=== PATIENT | female | born 1965 | race Caucasian/White ===

== ENCOUNTER → 2017-07-08 | Outpatient (CLI) | payer OTHER ==
[~2017-07-08] MED LIST: IOHEXOL 300 MG/ML 75 ML VIAL. IV ONE
--- NOTE | 2017-07-08 08:39 | RAD ---
EXAM: CT head with contrast. HISTORY: Olfactory hallucinations. TECHNIQUE: CT of the head was performed after the intravenous administration of 68 mL iodinated contrast.. COMPARISON: None. FINDINGS: There are no clear enhancing lesions. The intracranial vasculature are grossly unremarkable by this technique. No abnormality is appreciated along the course of the olfactory bulbs and cribriform plate. There is no mass effect or vasogenic edema. There is no intracranial hemorrhage. Lozada-white differentiation is preserved. The ventricles are normal in size and position. The sella is incidentally mostly empty. The paranasal sinuses, orbits, temporal bones and calvarium are unremarkable and there included portions. IMPRESSION: 1. No abnormality is identified by CT. MRI is more sensitive for enhancing or small lesions if there is persistent concern. One or more of the following individualized dose reduction techniques were utilized for this examination: 1. Automated exposure control. 2. Adjustment of the mA and/or kV according to patient size. 3. Use of iterative reconstruction technique.
== END | disposition home or self-care (01) ==
LOC: CT 07:37
PROVIDERS: ATTEND Family Medicine Sports Medicine
DX: R44.2 Other hallucinations (principal)
CPT/HCPCS: 70460; Q9967